=== PATIENT | female | born 1965 | race Caucasian/White ===

== ENCOUNTER → 2017-02-27 | Outpatient (CLI) | payer BC ==
--- NOTE | 2017-02-27 09:05 | EKG ---
[address] [place] [address] Measurements Intervals [place] Rate: 60 P: 74 ND: 155 QRS: 46 QRSD: 82 T: 43 QT: 422 QTc: 423 Interpretive Statements SINUS RHYTHM LOW QRS VOLTAGE IN PRECORDIAL LEADS [QRS DEFLECTION < 1.0 mV IN CHEST LEADS] No previous ECG available for comparison Electronically Signed On 02-27-17 12:24:05 MDT by Bebeto Cedeño [email or web address]
--- NOTE | 2017-03-05 10:02 | HOLTER ---
[facility] [place] [id number]
== END ==
LOC: MOB EKG 08:50
PROVIDERS: ATTEND Physician Assistant Medical
DX: R42 Dizziness and giddiness (principal); R00.2 Palpitations
CPT/HCPCS: 93005; 93010

== ENCOUNTER → 2017-02-28 | Outpatient (CLI) | payer BC | LOC: RT 16:04 | PROVIDERS: ATTEND Physician Assistant Medical | DX: R42 Dizziness and giddiness (principal) | CPT/HCPCS: 93225; 93226; 93227 ==

== ENCOUNTER → 2017-03-18 | Outpatient (CLI) | payer BC | LOC: MOB LAB 08:54 | PROVIDERS: ATTEND Family Medicine | DX: R42 Dizziness and giddiness (principal); R00.2 Palpitations; Z00.01 Encounter for general adult medical examination with abnormal findings | CPT/HCPCS: 36415; 83735; 84439 ==